=== PATIENT | female | born 1970 | race Caucasian/White ===

== ENCOUNTER 2016-09-25 05:37 | Day surgery (SDC) | payer OTHER ==
[~2016-09-25] VITALS: Ht 165.1 cm; Wt 96.6 kg
[~2016-09-25 05:37] MED LIST: CALCIUM 500 +1 EAC5 PO; CYANOCOBALAM1000 MCG PO; DEXILANT60 MG PO; Dyazide, Maxzide 37. PO; Ecotrin PO; FIORICET,ESG1 TABLET PO; FOLIC ACID1 MG PO; IMITREX50 MG PO; NORVASC2.5 MG PO; PAMELOR10 MG PO; PLAQUENIL200 MG PO; PriLOSEC OTC PO; RAYOS5 MG PO; TREXALL10 MG PO; Topamax PO; Vitamin D PO; ZANTAC300 MG PO; ZYRTEC5 MG PO; [UNRECOGNIZED DRUG - REMARK]
[2016-09-25 06:01] VITALS: BP 128/73
[2016-09-25 12:54] VITALS: BP 130/74
[2016-09-25 15:55] VITALS: BP 136/81
[2016-09-25 20:00] VITALS: BP 158/92
[2016-09-26 00:17] VITALS: BP 117/65
[2016-09-26 04:17] VITALS: BP 109/64
[2016-09-26 07:31] LABS: HEMATOCRIT 33.4 % (36.0-46.0); MCH 28.3 PG (29.0-34.0); MCHC 32.3 G/DL (30.0-36.0); MCV 87.7 FL (83-99); MEAN PLAT.VOLUME 10.9 uM^3 (9.5-12.4); PLATELET COUNT 195 K/uL (156-360); RBC DIS.WIDTH-CV 14.4 % (11.8-14.6); RBC DIS.WIDTH-SD 45.9 % (39-53); RED BLOOD COUNT 3.81 M/uL (3.80-5.20); WHITE BLOOD COUNT 13.9 K/uL (4.1-10.2)
[2016-09-26 07:45] VITALS: BP 120/58
[2016-09-26] MEDS ORDERED: DILAUDID2 MG PO (08:04)
[2016-09-26 08:20] VITALS: BP 120/58
== END 2016-09-26 10:13 | disposition home or self-care (01) ==
LOC: SDC 05:37 → 2SOUTH 10:28 → 2EASTP 10:28 → 2SOUTH 10:28 → 2EASTP 12:39 → SDC 13:07 → 2EASTP 09-26 10:13
PROVIDERS: Obstetrics & Gynecology
PROC: 0UT74ZZ Resection of Bilateral Fallopian Tubes, Percutaneous Endoscopic Approach (ICD-10-PCS; principal; 2016-09-25)
DX: N92.0 Excessive and frequent menstruation with regular cycle (principal); D25.9 Leiomyoma of uterus, unspecified; N80.0 Endometriosis of uterus; I10 Essential (primary) hypertension; M06.9 Rheumatoid arthritis, unspecified; M34.9 Systemic sclerosis, unspecified
CPT/HCPCS: 85027; 88307; C9113; G0378; J0690; J1100; J1170; J1885; J2250; J2405; J2710; J3010; J7120; J7512